=== PATIENT | female | born 1955 | race Caucasian/White ===

== ENCOUNTER 2022-04-06 12:30 | Emergency (ER) | payer OTHER ==
[~2022-04-06] VITALS: Ht 157.5 cm; Wt 54.0 kg
[~2022-04-06 12:30] MED LIST: FENTANYL1 EAC2 TD; MEDICAL MARIJUANA; VYVANSE70 MG PO
== END 2022-04-06 16:04 | disposition home or self-care (01) ==
LOC: ED 12:30
DX: R10.84 Generalized abdominal pain (principal); F90.9 Attention-deficit hyperactivity disorder, unspecified type; Z87.891 Personal history of nicotine dependence; Z88.5 Allergy status to narcotic agent; Z88.8 Allergy status to other drugs, medicaments and biological substances; Z88.1 Allergy status to other antibiotic agents; Z88.0 Allergy status to penicillin; Z88.2 Allergy status to sulfonamides; Z91.040 Latex allergy status
CPT/HCPCS: 36415; 80053; 81001; 83690; 85025; 99284

== ENCOUNTER 2022-05-17 21:58 | Emergency (ER) | payer OTHER ==
[~2022-05-17] VITALS: Ht 157.5 cm; Wt 54.0 kg
== END 2022-05-18 00:44 | disposition home or self-care (01) ==
LOC: ED 21:58
DX: R10.9 Unspecified abdominal pain (principal); M79.652 Pain in left thigh; M79.651 Pain in right thigh; Z87.891 Personal history of nicotine dependence; Z88.5 Allergy status to narcotic agent; Z88.2 Allergy status to sulfonamides; Z88.1 Allergy status to other antibiotic agents; Z91.040 Latex allergy status; Z91.048 Other nonmedicinal substance allergy status
CPT/HCPCS: 36415; 80053; 81001; 83690; 85025; 99284